=== PATIENT | male | born 1945 | race Caucasian/White ===

== ENCOUNTER 2021-12-27 08:22 | Day surgery (SDC) | payer MEDICARE, OTHER ==
[2021-12-27] MEDS ORDERED: methylPREDNISolone Sodium Succinate 125 MG/2 ML SDV IVPUSH ONE (08:23)
[2021-12-27] MEDS ORDERED: Midazolam 1 MG/ML 2 ML SDV IV ONE (08:23)
[2021-12-27] MEDS ORDERED: Lactated Ringers 1,000 ML IV PRN (08:30)
[2021-12-27] MEDS: Sodium Chloride 0.9% 10 ML Syringe FLUSH PRN (09:14)
[2021-12-27] MEDS: acetaZOLAMIDE 500 MG Cap.ER PO ONE (10:57)
[2021-12-27 11:24] VITALS: BP 98/54; PULSE 66
== END 2021-12-27 11:15 | disposition home or self-care (01) ==
LOC: FB.SDS 08:22
PROVIDERS: ATTEND Ophthalmology
DX: H25.13 Age-related nuclear cataract, bilateral (principal); H52.13 Myopia, bilateral; I25.2 Old myocardial infarction; I25.10 Atherosclerotic heart disease of native coronary artery without angina pectoris; I48.91 Unspecified atrial fibrillation; I10 Essential (primary) hypertension; F17.210 Nicotine dependence, cigarettes, uncomplicated; E78.5 Hyperlipidemia, unspecified; Z79.899 Other long term (current) drug therapy; Z79.82 Long term (current) use of aspirin
CPT/HCPCS: A9270-GY; J2250; J2930; J3490

== ENCOUNTER 2022-01-10 08:10 | Day surgery (SDC) | payer MEDICARE, OTHER ==
[2022-01-10] MEDS ORDERED: fentaNYL 100 MCG/2 ML SDV IV ONE (08:11)
[2022-01-10] MEDS ORDERED: Midazolam 1 MG/ML 2 ML SDV IV ONE (08:11)
[2022-01-10] MEDS ORDERED: Sodium Chloride 0.9% 10 ML Syringe FLUSH PRN (08:30)
[2022-01-10] MEDS ORDERED: Lactated Ringers 1,000 ML IV PRN (08:30)
[2022-01-10] MEDS ORDERED: acetaZOLAMIDE 500 MG Cap.ER PO ONE (10:30)
[2022-01-10 11:01] VITALS: BP 99/50; PULSE 60
== END 2022-01-10 10:48 | disposition home or self-care (01) ==
LOC: FB.SDS 08:10
PROVIDERS: ATTEND Ophthalmology
DX: H25.13 Age-related nuclear cataract, bilateral (principal); H52.13 Myopia, bilateral; I25.2 Old myocardial infarction; I25.10 Atherosclerotic heart disease of native coronary artery without angina pectoris; I48.91 Unspecified atrial fibrillation; I10 Essential (primary) hypertension; E78.5 Hyperlipidemia, unspecified; F17.210 Nicotine dependence, cigarettes, uncomplicated; N40.0 Benign prostatic hyperplasia without lower urinary tract symptoms; Z79.899 Other long term (current) drug therapy
CPT/HCPCS: A9270-GY; J2250; J3010; J3490; V2632